=== PATIENT | male | born 1990 | race Caucasian/White ===

== ENCOUNTER 2018-05-01 17:30 | Emergency (ER) | payer BC ==
[~2018-05-01] VITALS: Ht 182.9 cm; Wt 113.6 kg
[2018-05-01 17:40] VITALS: BP 134/61; PULSE 58; TEMP 98.9
[2018-05-01 18:05] LABS: BASO # 0.1 (0.0-0.2); BASO % 0.6 % (0.0-2.0); EOS # 0.2 (0.0-0.7); EOS % 2.7 % (0-4.0); GRAN % 58.4 % (42.2-75.2); HEMATOCRIT 43.2 % (42.0-52.0); LYMPH # 2.9 (1.2-3.4); LYMPH % 34.3 % (20.0-51.0); MEAN CELL VOLUME 85 fl (80.0-100.0); MEAN CORPUSCULAR HEMOGLOBIN 31 pg (27.0-31.0); MEAN CORPUSCULAR HGB CONC 37 g/dl (33.0-37.0); MONO # 0.3 (0.1-0.6); MONO % 3.8 % (1.7-9.3); PLATELET COUNT 213 K/mm3 (130-400); REDCELL DISTRIBUTION WIDTH-CV 11.5 % (11.5-14.5)
[2018-05-01 18:14] LABS: ALBUMIN 4.5 gm/dL (3.5-5.0); BILIRUBIN,TOTAL 0.4 mg/dL (0.0-1.0); CALCIUM 9.8 mg/dL (8.4-10.2); CREATININE, serum 0.99 mg/dL (0.66-1.25); POTASSIUM 3.9 mmol/L (3.4-5.0); TOTAL PROTEIN 7.7 gm/dL (6.4-8.2)
[2018-05-01] MEDS ORDERED: ZOFRAN ODT4 MG PO (18:32)
== END 2018-05-01 18:33 | disposition home or self-care (01) ==
LOC: COL.ER 17:30
PROVIDERS: Physician Assistant
DX: S00.93XA Contusion of unspecified part of head, initial encounter (principal); R11.0 Nausea; W22.8XXA Striking against or struck by other objects, initial encounter; Y92.89 Other specified places as the place of occurrence of the external cause
CPT/HCPCS: J1885

== ENCOUNTER → 2018-10-12 | Outpatient (CLI) | payer BC ==
[~2018-10-12] MED LIST: FLEXERIL 1010 MG/TAB PO; LIDODERM 5% PATC1 EA TP; MEDROL 4MG DOSPA4 MG PO; ZOFRAN ODT4 MG PO
== END ==
LOC: COL.RAD 09:25
DX: M51.17 Intervertebral disc disorders with radiculopathy, lumbosacral region (principal)